=== PATIENT | female | born 1990 | race African-American/Black ===

== ENCOUNTER 2023-10-05 20:51 | Emergency (ER) | payer OTHER ==
[2023-10-05 21:11] VITALS: BMI 33.8
[2023-10-05 23:03] LABS: BASO % 0.7 % (0-2.0); EOS % 0.5 % (0-4.5); HEMATOCRIT 36.4 % (32.4-45.2); HEMOGLOBIN 12.4 GM/dL (10.7-15.3); LYMPH % 16.4 % (8-40); MCHC 34.1 g/dl (32.0-36.0); MEAN CELL VOLUME 96.8 fl (80-96); MEAN PLT VOLUME 7.8 fl (7.5-11.1); MONO % 6.5 % (3.8-10.2); NEUT % 75.9 % (42.8-82.8); PLATELET COUNT 278 10^3/uL (134-434); RBC 3.76 M/mm3 (3.60-5.2); RDW 13.2 % (11.6-15.6); WHITE BLOOD COUNT 10.9 K/mm3 (4.0-10.0)
[2023-10-05 23:08] LABS: POTASSIUM 4.4 mmol/L (3.5-5.1)
[2023-10-05 23:11] LABS: ALBUMIN 3.3 g/dl (3.4-5.0); BLOOD UREA NITROGEN 6.6 mg/dL (7-18); MAGNESIUM 2.2 mg/dL (1.8-2.4)
[2023-10-05 23:14] LABS: CREATININE 0.4 mg/dL (0.55-1.3)
[2023-10-05 23:16] LABS: BILIRUBIN,TOTAL 0.4 mg/dL (0.2-1); LDH 168 U/L (84-246); TOT PROT 7.2 g/dl (6.4-8.2)
[2023-10-05 23:58] LABS: EPI CELLS 30 /uL (0-25.1); HYALINE CASTS 0 /uL (0-3.1); URINE APPEARANCE CLEAR; URINE BACTERIA 310 /uL (0-1359); URINE BILIRUBIN NEGATIVE (NEGATIVE); URINE COLOR YELLOW; URINE GLUCOSE (UA) NEGATIVE (NEGATIVE); URINE KETONE 2+ (NEGATIVE); URINE LEUK ESTERASE TRACE (NEGATIVE); URINE NITRITE NEGATIVE (NEGATIVE); URINE PROTEIN NEGATIVE (NEGATIVE); URINE RBC 9 /uL (0-23.9); URINE UROBILINOGEN 0.2 mg/dL (0.2-1.0); URINE WBC 35 /uL (0-25.8)
[2023-10-06] MEDS ORDERED: CEPHALEXIN MONOHYDRATE 500 MG CAPSULE (UD) ONE (01:05)
[2023-10-06] MEDS: CEPHALEXIN MONOHYDRATE 500 MG CAPSULE (UD) PO ONE (01:07)
[2023-10-06 02:17] VITALS: BP 111/69; PULSE 95; RESP 18; TEMP 98.2
== END 2023-10-06 02:50 | disposition home or self-care (01) ==
LOC: JER 20:51
DX: O23.13 Infections of bladder in pregnancy, third trimester (principal); Z3A.31 31 weeks gestation of pregnancy
CPT/HCPCS: 36415; 76819-TC; 80053; 81003; 82550; 83615; 83735; 85025; 87086; 99284-25

== ENCOUNTER 2023-11-22 13:05 | Inpatient (IN) | payer OTHER ==
[2023-11-22] MEDS: ELECTROLYTE-148 SOLN 1,000 ML IV SCH (13:15)
[2023-11-22] MEDS ORDERED: LIDOCAINE HCL 1% PRESERVATIVE FREE - 30ML VIAL ONE (14:14)
[2023-11-22] MEDS ORDERED: OXYTOCIN 20 UNITS in 0.9% NS 20 UNIT/1,000 ML INFUS.BAG IV ONE (14:14)
[2023-11-22] MEDS: OXYTOCIN 20 UNITS in 0.9% NS 20 UNIT/1,000 ML INFUS.BAG IV SCH (14:40)
[2023-11-22] MEDS ORDERED: BISACODYL 10 MG SUPP.RECT RC PRN (15:13)
[2023-11-22] MEDS ORDERED: WITCH HAZEL 50% (TUCKS) 40 PAD/JAR PAD TP PRN (15:13)
[2023-11-22] MEDS ORDERED: ACETAMINOPHEN 325 MG TABLET (FP) PO PRN (15:13)
[2023-11-22] MEDS ORDERED: oxyCODONE HCL 5 MG TABLET PO PRN (15:13)
[2023-11-22] MEDS ORDERED: METHYLERGONOVINE MALEATE 0.2 MG/1 ML AMP IM PRN (15:13)
[2023-11-22 15:28] LABS: CORD HCO3 23.4 mmHg (20-29); CORD PCO2 49.9 mmHg (30-78); CORD pH 7.289 (7.14-7.44)
[2023-11-22 15:33] LABS: CORD HCO3 21.7 mmHg (20-29); CORD PCO2 41.7 mmHg (30-78); CORD pH 7.334 (7.14-7.44)
[2023-11-22 15:57] LABS: HEMATOCRIT 38.6 % (32.4-45.2); HEMOGLOBIN 12.7 GM/dL (10.7-15.3); MCH 32.4 pg (25.7-33.7); MEAN CELL VOLUME 98.2 fl (80-96); PLATELET COUNT 246 10^3/uL (134-434); RBC 3.93 M/mm3 (3.60-5.2); RDW 13.4 % (11.6-15.6); WHITE BLOOD COUNT 19.1 K/mm3 (4.0-10.0)
[2023-11-22 16:06] LABS: INR 0.94 (0.83-1.09); PROTHROMBIN TIME (PATIENT) 10.6 SEC (9.7-13.0)
[2023-11-22 16:07] VITALS: BMI 36.1
[2023-11-22 16:08] LABS: ACTIVATED PTT 24.4 SECONDS (25.2-36.5)
[2023-11-22 16:16] LABS: POTASSIUM 3.7 mmol/L (3.5-5.1)
[2023-11-22 16:20] LABS: BLOOD UREA NITROGEN 6.1 mg/dL (7-18)
[2023-11-22 16:24] LABS: CREATININE 0.4 mg/dL (0.55-1.3)
[2023-11-22 16:42] LABS: ANISOCYTOSIS 1+; MACROCYTOSIS 0
[2023-11-22] MEDS: IBUPROFEN 600 MG TABLET (FP) PO PRN (19:02)
[2023-11-22] MEDS: BENZOCAINE 20% 57 GM BOTTLE TP PRN (21:08)
[2023-11-22] MEDS: BENZOCAINE 28 GM HEMORRHOIDAL OINTMENT TP PRN (21:12)
[2023-11-23 08:23] LABS: BASO % 0.3 % (0-2.0); EOS % 0.6 % (0-4.5); HEMOGLOBIN 11.3 GM/dL (10.7-15.3); LYMPH % 16.1 % (8-40); MCH 32.9 pg (25.7-33.7); MCHC 33.2 g/dl (32.0-36.0); MEAN CELL VOLUME 99.2 fl (80-96); MEAN PLT VOLUME 9.1 fl (7.5-11.1); MONO % 5.7 % (3.8-10.2); NEUT % 77.3 % (42.8-82.8); PLATELET COUNT 219 10^3/uL (134-434); RBC 3.43 M/mm3 (3.60-5.2); RDW 13.5 % (11.6-15.6)
[2023-11-23] MEDS: SENNOSIDES/DOCUSATE COMBO (SENNA PLUS) TABLET (UD) PO PRN (22:55)
[2023-11-24 11:28] VITALS: BP 134/82; PULSE 84; RESP 17; TEMP 98.8
== END 2023-11-24 13:20 | disposition home or self-care (01) | DRG 560 ==
LOC: JLDR 13:05 → J3W 17:17
PROVIDERS: ADMIT Obstetrics & Gynecology; ATTEND Obstetrics & Gynecology
PROC: 10E0XZZ Delivery of Products of Conception, External Approach (ICD-10-PCS; principal; 2023-11-22)
PROC: 10907ZC Drainage of Amniotic Fluid, Therapeutic from Products of Conception, Via Natural or Artificial Opening (ICD-10-PCS; 2023-11-22)
DX: O69.81X0 Labor and delivery complicated by cord around neck, without compression, not applicable or unspecified (principal); Z3A.39 39 weeks gestation of pregnancy; Z37.0 Single live birth
CPT/HCPCS: 36415; 36600; 59409; 80048; 82803; 85025; 85610; 85730; 86780; 86850; 86900; 86901